=== PATIENT | female | born 1955 | race African-American/Black ===

== ENCOUNTER 2022-07-19 23:16 | Emergency (ER) | payer BC, OTHER ==
[~2022-07-19] VITALS: Ht 165.1 cm; Wt 81.8 kg
[2022-07-20 01:21] LABS: Basophils # (auto) 0 10 ^3/uL (0-0.2); Basophils % (auto) 0.4 % (0.0-2.0); Eosinophils # (auto) 0.1 10 ^3/uL (0-0.8); Eosinophils % (auto) 1.4 % (0.0-7.0); Lymphocytes # (auto) 3.5 10 ^3/uL (0.4-5.4); Lymphocytes % (auto) 32.9 % (10.0-50.0); Mean Corpuscular Hemoglobin 28.2 pg (28.0-32.0); Mean Corpuscular Hgb Conc. 33.4 g/dL (32.0-36.0); Mean Corpuscular Volume 84.4 fL (80.0-100.0); Monocytes # (auto) 1.3 10 ^3/uL (0-1.3); Monocytes % (auto) 12.7 % (0.0-12.0); Neutrophils # (auto) 5.6 10 ^3/uL (1.6-8.6); Neutrophils % (auto) 52.6 % (37.0-80.0); Nucleated Red Blood Cells % 0.1 %; Red Blood Cells 4.61 10^6/uL (4.0-5.20); Red Cell Distribution Width 14.6 % (11.8-14.3); White Blood Cell 10.6 10^3/uL (4.4-10.8)
[2022-07-20 01:32] LABS: Albumin 3.5 g/dL (3.4-5.0); BUN/Creatinine Ratio 27.3; Calcium 9.5 mg/dL (8.5-10.1); Potassium 3.7 mmol/L (3.5-5.1)
[2022-07-20 01:34] LABS: Bilirubin, Total 0.2 mg/dL (0.2-1.0); Total Protein 8.9 g/dL (6.4-8.2)
[2022-07-20 02:30] LABS: Urine Bacteria NONE SEEN /hpf (None Seen); Urine Blood 3+ /uL (Negative); Urine Specific Gravity 1.017 (1.001-1.035); Urine WBC 13 /hpf (0 - 5)
[2022-07-20 04:20] VITALS: BP 132/60
== END 2022-07-20 04:20 | disposition home or self-care (01) ==
LOC: ER 23:19
DX: N94.6 Dysmenorrhea, unspecified (principal)
CPT/HCPCS: 36415; 76830; 76856; 80053; 81001; 85025